=== PATIENT | male | born 1940 | race Caucasian/White ===

== ENCOUNTER 2016-12-07 10:06 | Emergency (ER) | payer OTHER, BC ==
[~2016-12-07] VITALS: Ht 180.3 cm; Wt 97.7 kg
[~2016-12-07 10:06] MED LIST: ADULT LOW DOSE81 M1 PO; ALEVE220 M2 PO; ALLERGY RELIEF10 M1 PO; ASPIRIN325 MG PO; BENICAR20 MG; BIOTIN1000 MICRO PO; BYSTOLIC10 MG PO; CARDURA2 M1 PO; CENTRUM SILVER1 EAC3 PO; CIPRO500 MG PO; FISH-FLAX-BORA1 EACH PO; FLAGYL500 MG PO; FUROSEMIDE40 MG PO; FUROSEMIDE80 MG PO; IPRATROPIUM BRO15 ML BOTH NARES; KLOR-CON M2020 MEQ PO; LANSOPRAZOLE30 MG PO; LIPITOR40 MG PO; METAXALONE800 MG; MINOXIDIL10 MG PO; NASONEX17 GM; NEXIUM40 MG; NEXIUM40 MG PO; NIFEDIAC CC90 MG PO; NIFEDIPINE ER30 MG PO; OMEGA-3 SOFTGE1 EACH; PLAVIX75 MG PO; TEKTURNA300 MG PO; VITAMIN D1000 INTUN PO
[2016-12-07 10:44] LABS: ADD MIUA? NO; BILIRUBIN NEGATIVE; BLOOD NEGATIVE; COLOR COLORLESS ((YELLOW)); GLUCOSE (STRIP) NEGATIVE; KETONES NEGATIVE; LEUKOCYTES NEGATIVE; NITRITE NEGATIVE; PROTEIN (STRIP) NEGATIVE; SPECIFIC GRAVITY 1.005 (1.000-1.030); UCUL ADDED? NO; UROBILINOGEN 0.2 MG/DL (0.2-1.0)
[2016-12-07 11:14] LABS: HEMATOCRIT 39.2 % (38.0-50.0); MCH 30.9 PG (29.0-34.0); MCHC 33.9 G/DL (30.0-36.0); MCV 91.2 FL (86-99); MEAN PLAT.VOLUME 10.1 uM^3 (9.0-12.4); PLATELET COUNT 214 K/uL (156-360); RBC DIS.WIDTH-CV 13.2 % (11.8-14.6); RBC DIS.WIDTH-SD 43.6 % (39-53); WHITE BLOOD COUNT 11.1 K/uL (4.1-10.2)
[2016-12-07 11:24] LABS: CHLORIDE 105 mEq/L (99-109); POTASSIUM 4.1 mEq/L (3.7-5.4); SODIUM 140 mEq/L (136-147)
[2016-12-07 11:26] LABS: GLUCOSE 112 mg/dL (70-99)
[2016-12-07 11:28] LABS: ANION GAP 12 MEQ/L (2-14); TOTAL BILIRUBIN 0.4 mg/dL (0.0-1.0)
[2016-12-07 11:30] LABS: ALKALINE PHOSPHATASE 59 IU/L (3-129); GFR ESTIMATE (CALCULATED) > 59 mL/min/
[2016-12-07 11:31] LABS: UREA NITROGEN (BUN) 15 mg/dL (9-23)
[2016-12-07 12:23] VITALS: BP 151/70
== END 2016-12-07 12:24 | disposition home or self-care (01) ==
LOC: EME 10:06
DX: R10.32 Left lower quadrant pain (principal); R19.7 Diarrhea, unspecified; R11.0 Nausea; I10 Essential (primary) hypertension; I25.10 Atherosclerotic heart disease of native coronary artery without angina pectoris; E78.5 Hyperlipidemia, unspecified; Z95.1 Presence of aortocoronary bypass graft; Z95.5 Presence of coronary angioplasty implant and graft; Z79.82 Long term (current) use of aspirin; Z79.02 Long term (current) use of antithrombotics/antiplatelets
CPT/HCPCS: 74176; 80053; 81003; 85027; 99281; 99285; J2270; J2405; J7030